=== PATIENT | female | born 1985 | race Caucasian/White ===

== ENCOUNTER → 2018-08-26 | Outpatient (CLI) | payer OTHER ==
--- NOTE | 2018-08-26 09:17 | KCIC ---
EXAM: Pelvic sonogram. HISTORY: Pelvic pain. IUD positioning. TECHNIQUE: Transabdominal and transvaginal sonographic imaging of the pelvis was performed. COMPARISON: None. FINDINGS: The uterus measures 7.6 x 4.7 x 4.0 cm. The endometrial stripe measures 4.7 mm in thickness. There is an IUD within the endometrial cavity. The ovaries are normal in size and demonstrate normal blood flow. There is a 1.8 cm dominant right ovarian follicle/follicular cyst. There is trace pelvic free fluid. IMPRESSION: 1. IUD within expected position within the endometrial cavity. 2. 1.8 cm dominant right ovarian follicle/follicular cyst. 3. Nonspecific trace pelvic free fluid. Electronically signed by: Melodie Lugo MD (08/26/2018 9:13 AM) [place] [id number]
== END | disposition home or self-care (01) ==
LOC: KCIC US 08:13
PROVIDERS: ATTEND Family Medicine
DX: N83.01 Follicular cyst of right ovary (principal); Z97.5 Presence of (intrauterine) contraceptive device
CPT/HCPCS: 76856